=== PATIENT | female | born 1950 ===

== ENCOUNTER 2023-05-16 10:12 | Outpatient (AMB) | payer MEDICARE, SELFPAY ==
--- NOTE | 2023-05-16 10:22 | MHC.OFFVIS ---
Intake Vital Signs 05/16/23 10:23 Height 5 ft 7 in Weight 163 lb BMI 25.5 BP 144/74 H Blood Pressure Location Rt brachial Position Sitting Respiration 14 Pulse 80 Pulse Source Pulse Oximeter Intake Visit Reasons: L Leg Pain Allergies No Known Allergies Allergy (Verified 05/16/23 10:25) Medication List - Last Reconciled 05/16/23 by Radha Ponce, CANDACE acetaminophen 1,000 mg PO Q6H PRN atorvastatin 10 mg PO DAILY clonazepam 0.5 mg PO BID PRN duloxetine 30 mg PO DAILY gabapentin 300 mg PO Q8H HPI L Leg Pain HPI Details 72-year-old female presenting today for an evaluation of left leg pain. The patient has a history of pain in her bilateral legs and lower back that started after bilateral knee replacements in 2020. She describes pain as most bothersome around her bilateral knees, where it is described as an aching, stabbing, tight sensation and rated at 4-5/10 in intensity. The second most painful area is described as the axial low back, where pain is rated at 3/10 in intensity and described as an aching sensation, especially worse in the morning. The third area of pain is in her ankles and calf, where it is rated at 3/10 in intensity. It is described as a constant throbbing sensation. She is unable to do her daily activities and function normally as she used to in the past. Overall, her primary complaint today is left lateral thigh, knee and calf pain that has been treated as greater trochanteric pain syndrome as well as iliotibial band syndrome in the past with very slow progress with physical therapy. Of note, she had a significant varus deformity of both knees, left more than right, prior to her knee replacement. She had bilateral knee replacements done on the same day. She is retired from work. She uses heating pads, ice packs, and home medications to help with these pain issues. She is unsure of how much help she is getting from her oral medications. She is currently taking gabapentin 300 milligrams three times a day and Tylenol 500 milligrams twice a day. She also takes 0.5 milligrams of Klonopin twice a day and was recently started taking 30 milligrams of Cymbalta. Since 2020, she has had multiple interventions for her various pain complaints, including extensive physical therapy for her knees, which was helpful. She had L4 TFESI, greater trochanteric bursa injection, IT bursa injection, laser treatment, and an intra-articular hip injection with no relief. She had repeat physical therapy for her knees with only marginal improvement. She had a takotsubo cardiomyopathy event in May last year, thought to be brought on by stress over health issues. [facility] Medical History (Updated 05/16/23 @ 14:42 by Roberto Oneil MD) Anxiety Arthritis Osteopenia Osteoporosis Takotsubo cardiomyopathy Review of Systems Const All systems reviewed & are unremarkable except as noted in HPI and below Physical Exam Vital Signs: Last Vital Signs Pulse 80 05/16/23 10: Resp 14 05/16/23 10: BP 144/74 H 05/16/23 10: BMI result Body Mass Index 25.5 General: Appears afebrile. Alert and oriented. Mood and affect appropriate. Follows and participates in conversation appropriately. Respiratory effort is unlabored. Able to transition from sit to stand unassisted. Ambulates with bilaterally normal heel strike and toe off. Knees: Well-healed midline scars overlying both knees. There is tenderness to palpation along the lateral aspect of the left thigh, left lateral suprapatellar and infrapatellar regions. The left lateral infrapatellar region is most tender and painful. No swelling around the knee joints. No medial tenderness on, above or below the knee. Results Reviewed Results Reviewed: 03/01/23: X-RAY ANKLE 3 03/01/23: X-RAY KNEE 4 Assessment & Plan Assessment & Plan (1) Chronic knee pain after total replacement of both knee joints: Code(s): M25.561 - Pain in right knee; M25.562 - Pain in left knee; G89.28 - Other chronic postprocedural pain; Z96.653 - Presence of artificial knee joint, bilateral Plan 72-year-old female status post bilateral knee replacements with significant subsequent left lateral pain and discomfort in the thigh, knee and calf. While she does have other complaints including pain in the right knee, axial low back pain and the ankles, her left lateral lower extremity pain is the most bothersome symptom at this time, especially in the left lateral infrapatellar region. This is likely secondary to the sudden correction of her severe varus deformity with subsequent tendinitis/tendinopathy of the tendon insertion sites in the supra and infrapatellar regions of the left lateral lower extremity. To date she has tried multiple rounds of corticosteroid injections. I recommended that she should refrain from any further injection of corticosteroids since these have not been helpful and are unlikely to be helpful long-term. I agree with continuing progressive physical therapy since whatever progress she has made so far appears to be secondary to a combination of physical therapy and stretching. I also discussed trial of acupuncture, physical therapy in combination with ultrasound therapy and regenerative techniques including injection of PRP around the target tendon areas. I provided patient with contact information for acupuncture and regenerative medicine providers in the area. If these are not helpful, we can consider ESWT, temporary nerve stimulator vs permanent nerve stimulator as feasible treatment options at that point. Given the patient's significant anxiety levels and history of cardiomyopathy from excess anxiety, I will reserve any implantable devices as an option of last resort. Patient is in agreement with the plan. Scribed for Dr. Oneil by Kuldip Flores medical education manager, on 05/16/2023. I, Dr. Oneil, have personally reviewed and agree with the information entered by the scribe. Coding Level of Care Code New Pt Level 4 (13209) Diagnoses Chronic knee pain after total replacement of both knee joints M25.561; M25.562; G89.28; Z96.653
[2023-05-16 10:23] VITALS: BP 144/74; PULSE 80; RESP 14; BMI 25.5
== END 2023-05-16 11:02 | disposition home or self-care (01) ==
PROVIDERS: PCP Internal Medicine; Visit Provider Internal Medicine
DX: M25.561 Pain in right knee (principal); M25.562 Pain in left knee; G89.28 Other chronic postprocedural pain; Z96.653 Presence of artificial knee joint, bilateral
CPT/HCPCS: 99204

== ENCOUNTER → 2023-05-16 10:18 | Outpatient (BNVA) | payer MEDICARE, SELFPAY | PROVIDERS: PCP Internal Medicine; Visit Provider Internal Medicine | DX: M79.605 Pain in left leg (principal); M54.50 Low back pain, unspecified; I51.81 Takotsubo syndrome; Z96.653 Presence of artificial knee joint, bilateral | CPT/HCPCS: 99202 ==